=== PATIENT | female | born 1940 | race Caucasian/White ===

== ENCOUNTER 2018-11-24 09:02 | Inpatient (IN) | payer MEDICARE | END 2018-11-26 20:30 | LOC: DAHIP 09:02 → 4AH 19:30 | PROC: 0SR90JZ Replacement of Right Hip Joint with Synthetic Substitute, Open Approach (ICD-10-PCS; principal; 2018-11-24 13:53) | DX: M16.11 Unilateral primary osteoarthritis, right hip (principal) ==